=== PATIENT | female | born 1970 | race Caucasian/White ===

== ENCOUNTER 2017-07-28 11:45 | Emergency (ER) | payer OTHER ==
[2017-07-28] MEDS: ONDANSETRON (ODT) 4 MG TAB ODT (14:58)
[2017-07-28] MEDS: HYDROCODONE/APAP (5/325) TAB PO (14:59)
== END 2017-07-28 15:38 | disposition home or self-care (01) ==
LOC: FTE 11:45
DX: R11.2 Nausea with vomiting, unspecified (principal); R19.7 Diarrhea, unspecified
CPT/HCPCS: 99284; Z7502